=== PATIENT | male | born 1945 | race African-American/Black ===

== ENCOUNTER 2016-04-10 21:28 | Emergency (ER) ==
--- NOTE | 2016-04-10 21:56 | ED EKG INTERP ---
EKG Interpretation - EKG Time of EKG reading by physician:: 21:55 EKG Read and Signed by:: Brian Dial EKG Interpretation (*Must complete 3 of following elements*): Abnormal (Minimal voltage criteria for LVH, may be normal variant per Dr. Dial) Rate: 77 Rhythm: Normal sinus rhythm Attestation - Scribe Verification/Attestation Scribe:: Bryan Ochoa Acting as Scribe for:: Brian Dial Scribe documention review:: This chart was documented by a scribe and accurately reflects the service the provider performed and the decisions made by the provider.
--- NOTE | 2016-04-10 22:23 | PROVIDER DOCUMENTATION ---
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 Pt reports he has been having fever/chills, has been diaphoretic, c/p, elevated b/ p and headaches today and reports his vomit was red, but also reports drinking red colored Koolaid. Pt reports that he felt much better after vomiting. 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 On exam, pt denies any pain and says "I feel great." Onset/Duration: reports: 1-3 hours ago Timing: reports: gone now, resolved prior to arrival Associated Symptoms: reports: chest pain, diaphoresis, fever/chills, headaches, vomiting. denies: constipation, diarrhea, fatigue, loss of appetite, nausea, shortness of breath, pain with inspiration, syncope, weakness, trouble walking <Bryan Ochoa - Last Filed: 04/11/16 02:53> <Brian Dial - Last Filed: 04/11/16 02:58> - General Chief Complaint: General Adult Stated Complaint: "POSS VOMITING BLOOD" Time Seen by Provider: 04/10/16 21:54 Allergies/Adverse Reactions: Patient Allergies Allergy/AdvReac Type Severity Reaction Status Date / Time No Known Allergies Allergy Verified 04/10/16 22:45 Home Medications: Ezetimibe [Zetia] 10 mg PO DAILY 08/14/15 Fenofibric Acid D.r. [Trilipix] 1 cap PO DAILY 08/14/15 Pantoprazole [Protonix] 40 mg PO DAILY 08/14/15 Rosuvastatin Calcium [Crestor] 40 mg PO DAILY 08/14/15 Aspirin [Aspirin EC] 81 mg PO DAILY 04/10/16 Review of Systems - Adult - REVIEW OF SYSTEMS - ADULT Constitutional: reports: chills, fever. denies: fatique, night sweats Eyes: reports: no symptoms reported Ears, Nose, Mouth & Throat: reports: no symptoms reported Cardiovascular: reports: chest pain, other (elevated b/p). denies: heart murmur , irregular heart rate, poor circulation, syncope Respiratory: reports: no symptoms reported Gastrointestinal: reports: vomiting. denies: abdominal pain, constipation, diarrhea, nausea, poor appetite Genitourinary: reports: no symptoms reported Musculoskeletal: reports: no symptoms reported Integumentary: reports: other (diaphoresis). denies: hives, itching, rash, skin sores/ulcer, skin thickening Neurological: reports: no symptoms reported Psychiatric: reports: no symptoms reported Endocrine: reports: no symptoms reported Hematologic/Lymphatic: reports: no symptoms reported Allergic/Immunologic: reports: no symptoms reported All Other Systems: Reviewed and Negative <Bryan Ochoa - Last Filed: 04/11/16 02:53> Past History - Adult - PAST MEDICAL HISTORY-ADULT Review of Records: reports: Nursing Assessment Review, Medications Reviewed Cardiovascular: reports: arrhythmia, HTN, hyperlipidemia Genitourinary: reports: cancer (prostate ) - PRIOR SURGERIES/PROCEDURES Surgical/Procedure History: reports: appendectomy, other (prostate removal ) - PRIOR HOSPITALIZATIONS Prior Hospitalizations: reports: for other non-related - IMMUNIZATION STATUS Childhood Immunizations: See Nurse Assessment Flu Vaccine: See Nurse Assessment <Bryan Ochoa - Last Filed: 04/11/16 02:53> Physical Exam-General - PHYSICAL EXAM-ADULT Initial Vital Signs Reviewed: Yes - CONSTITUTIONAL General Appearance: appears well, alert, no apparent distress - EYES Eyes: PERRL/EOMI, pink conjunctivae, fundi clear, no AV nicking - HEAD, EARS, NOSE, MOUTH & THROAT HENMT: normocephalic/atraumatic, moist mucous membranes, normal ENT inspection - NECK Neck: non-tender, full range of motion, supple - RESPIRATORY Respiratory: chest non-tender, lungs clear, normal breath sounds - CARDIOVASCULAR Cardiovascular: normal peripheral pulses, regular rate, rhythm - GASTROINTESTINAL (ABDOMEN) Abdominal Exam: normal bowel sounds, non tender, soft - LYMPHATIC Lymphatic: no adenopathy - SKIN Integumentary: normal color, normal turgor, warm/dry - NEUROLOGIC Neurologic: grossly normal, no motor/sensory deficits - PSYCHIATRIC Psych/Mental Status: normal mood/affect, normal thought content, normal thought process, oriented x 3 <Bryan Ochoa - Last Filed: 04/11/16 02:53> Progress - PLAN OF CARE/RESULTS Progress/Plan/Lab Results: Vital Signs - 24 hr 04/10/16 21:30 Temperature 97.7 F Pulse Rate 81 Respiratory 16 Rate Blood Pressure 148/117 O2 Sat by Pulse 98 Oximetry Orders Category Date Time Status Cardiac Monitoring DIRECTED Care 04/10/16 22:18 Active Saline Loc DIRECTED Care 04/10/16 22:01 Inactive NPO Diet 04/10/16 22:01 Active acute [FLAT/UPRIGHT ABD/1 VIEW CHEST] [RAD] Stat Exams 04/10/16 22:02 Taken CBC WITH ELECTRONIC DIFF [HEME] Stat Lab 04/10/16 22:40 Completed COMPREHENSIVE METABOLIC PANEL [CHEM] Stat Lab 04/10/16 22:40 Completed LIPASE [CHEM] Stat Lab 04/10/16 22:40 Completed TROPONIN T Stat Lab 04/10/16 22:40 Completed URINALYSIS W/POSS RFLX CULT [URINALYSIS] Stat Lab 04/10/16 23:20 Results URINE MANUAL MICROSCOPIC [URINALYSIS] Stat Lab 04/10/16 23:20 Results CefTRIAXONE 1 GM/NS [Rocephin 1 gm/Ns] 50 ml Med 04/10/16 23:49 Active IV STAT Ciprofloxacin [Cipro] Med 04/10/16 23:43 Discontinued 500 mg PO NOW ONE EKG [EKG] Stat Ther 04/10/16 21:43 Ordered Laboratory Tests 04/10/16 04/10/16 04/10/16 22:40 22:40 22:40 WBC 10.57 RBC 4.76 Hgb 14.6 Hct 43.9 MCV 92.2 MCH 30.7 MCHC 33.3 RDW Std Deviation 13.3 Plt Count 379 MPV 9.3 Immature Gran % (Auto) 0.7 H Neut % (Auto) 74.9 Lymph % (Auto) 12.3 L [place] % (Auto) 9.6 H Eos % (Auto) 2.2 Baso % (Auto) 0.3 Immature Gran # (Auto) 0.07 H Neut # (Auto) 7.92 H Lymph # (Auto) 1.30 [place] # (Auto) 1.02 H Eos # (Auto) 0.23 Baso # (Auto) 0.03 Sodium 141 Potassium 4.2 Chloride 102 Carbon Dioxide 27 Anion Gap 12 BUN 20 Creatinine 2.3 H Estimated GFR/1.73 m2 34 BUN/Creatinine Ratio 9 Glucose 107 H Calculated Osmolality 284 Calcium 9.3 Total Bilirubin 0.26 AST 27 ALT 23 Alkaline Phosphatase 45 Troponin T 0.080 Total Protein 6.8 Albumin 3.7 Globulin 3.1 Albumin/Globulin Ratio 1.2 Lipase 60 Urine Source Urine Color Urine Turbidity Urine pH Ur Specific [place] Urine Protein Ur Glucose (Stick) Ur Ketones (Stick) Urine Blood Urine Nitrite Urine Bilirubin Urobilinogen Dipstick Urine Leukocytes Urine WBC (Auto) Urine RBC (Auto) U Epithel Cells (Auto) Urine Bacteria (Auto) 04/10/16 23:20 WBC RBC Hgb Hct MCV MCH MCHC RDW Std Deviation Plt Count MPV Immature Gran % (Auto) Neut % (Auto) Lymph % (Auto) [place] % (Auto) Eos % (Auto) Baso % (Auto) Immature Gran # (Auto) Neut # (Auto) Lymph # (Auto) [place] # (Auto) Eos # (Auto) Baso # (Auto) Sodium Potassium Chloride Carbon Dioxide Anion Gap BUN Creatinine Estimated GFR/1.73 m2 BUN/Creatinine Ratio Glucose Calculated Osmolality Calcium Total Bilirubin AST ALT Alkaline Phosphatase Troponin T Total Protein Albumin Globulin Albumin/Globulin Ratio Lipase Urine Source CLEAN CATCH Urine Color YELLOW Urine Turbidity TURBID Urine pH 5.5 Ur Specific [place] 1.027 Urine Protein 200 A Ur Glucose (Stick) TRACE Ur Ketones (Stick) TRACE A Urine Blood NEGATIVE Urine Nitrite NEGATIVE Urine Bilirubin SMALL A Urobilinogen Dipstick 3 A Urine Leukocytes TRACE A Urine WBC (Auto) 10-20 A Urine RBC (Auto) <10 U Epithel Cells (Auto) <10 Urine Bacteria (Auto) NEGATIVE - XRAY 1 XRAY: Bilateral XRAY Study: Chest, Abdomen, Pelvis Impression: See EMR Report XRAY Interpretation: NAD per Dr. Dial <Bryan Ochoa - Last Filed: 04/11/16 02:53> Departure - Departure Time of Disposition Order: 23:51 Certified Medical Emergency: Emergent <Bryan Ochoa - Last Filed: 04/11/16 02:53> - Departure Certified Medical Emergency: Emergent <Brian Dial - Last Filed: 04/11/16 02:58> - Departure DIAGNOSIS: Renal insufficiency, Volume depletion UTI (urinary tract infection) Qualifiers: Urinary tract infection type: site unspecified Hematuria presence: without hematuria Qualified Code(s): N39.0 - Urinary tract infection, site not specified Disposition: HOME 01 Condition: Stable Additional Instructions: plenty of fluids, return to ER if chest pain returns, followup with primary care provider and urologist on Wednesday Prescriptions: Ciprofloxacin HCl [Cipro] 500 mg PO BID #14 tablet Referrals: Dereje Vargas Jr, MD [Primary Care Provider] - Sam Gan MD [STAFF PHYSICIAN] - Instructions: Urinary Tract Infection, [id number] Attestation - Scribe Verification/Attestation Scribe:: Bryan Ochoa Acting as Scribe for:: Brian Dial Scribe documention review:: This chart was documented by a scribe and accurately reflects the service the provider performed and the decisions made by the provider. <Bryan Ochoa - Last Filed: 04/11/16 02:53> Physician Attestation
[2016-04-10 22:50] LABS: MANUAL DIFF NEEDED? NO
[2016-04-10 22:51] LABS: BASO% 0.3 % (0.0-0.8); EOS# 0.23 X1000 (0.0-0.7); EOS% 2.2 % (0.0-10.0); HEMATOCRIT 43.9 % (42.0-52.0); HEMOGLOBIN 14.6 g/dL (14.0-18.0); IMM GRAN# 0.07 X1000 (0.0-0.04); IMM GRAN% 0.7 % (0.0-0.5); LYMPH% 12.3 % (20.5-51.1); MCH 30.7 PG (27-31); MCHC 33.3 g/dL (33-37); MCV 92.2 FL (81-99); MONO# 1.02 X1000 (0.11-0.59); MONO% 9.6 % (1.7-9.3); MPV 9.3 FL (7.4-10.4); NEUT% 74.9 % (42.2-75.2); PLT 379 X1000 (130-400); RBC 4.76 XMIL (4.7-6.1)
[2016-04-10 23:07] LABS: ALBUMIN 3.7 g/dL (3.5-5.0); CALCIUM 9.3 mg/dL (8.8-10.2); POTASSIUM 4.2 mmol/L (3.5-5.1); TOTAL BILIRUBIN 0.26 mg/dL (0.20-1.00); TOTAL PROTEIN 6.8 g/dL (6.3-8.3)
[2016-04-10 23:24] LABS: URINE CULTURE NEEDED? NO; URINE SOURCE CLEAN CATCH
[2016-04-10 23:27] LABS: BILIRUBIN URINE SMALL (NEGATIVE); BLOOD URINE NEGATIVE (NEGATIVE); COLOR YELLOW; GLUCOSE URINE TRACE mg/dL (NEGATIVE); LEUKOCYTES URINE TRACE (NEGATIVE); NITRITE URINE NEGATIVE (NEGATIVE); PH URINE 5.5; PROTEIN URINE 200 mg/dL (NEGATIVE); SP GRAVITY URINE 1.027; TURBIDITY URINE TURBID (CLEAR); UROBILINOGEN URINE 3 mg/dL (NORMAL)
[2016-04-10 23:29] LABS: URINE MICRO REVIEW NEEDED? YES
[2016-04-10] MEDS ORDERED: CIPRO PO ONE (23:43)
[2016-04-10 23:45] LABS: UR EPITHELIAL CELLS <10 /HPF (<10); URINE BACTERIA NEGATIVE /HPF; URINE RBC <10 /HPF (<10)
[2016-04-10] MEDS ORDERED: ROCEPHIN 1 GM/NS 50 ML IV STA (23:49)
[2016-04-10] MEDS ORDERED: NS 2,000 ML IV ONE (23:56)
[2016-04-11] MEDS ORDERED: ROCEPHIN 1 GM/NS 50 ML IV STA (00:06)
[2016-04-11 00:49] LABS: URINE CASTS NONE SEEN
[2016-04-11] MEDS ORDERED: PROTONIX IV ONE (01:23)
[2016-04-11] MEDS ORDERED: SODIUM CHLORIDE 0.9% INJ ONE (01:23)
[2016-04-11 02:34] VITALS: BP 114/73
--- NOTE | 2016-04-11 10:49 | Diag Imaging Result Document ---
PROCEDURE NAME: FLAT/UPRIGHT ABD/1 VIEW CHEST - 04/10/2016 PLAIN RADIOGRAPHS OF THE CHEST AND ABDOMEN, 3 VIEWS: COMPARISON: Chest radiograph dated 08/14/2015. FINDINGS: There are unremarkable bowel gas and stool patterns. There is no definite obstructive pattern. There is no evidence of large-volume free abdominal gas. There is no definite organomegaly. There is suggestion of minimal left basilar atelectasis. The lungs are clear otherwise. There is no significant pleural fluid collection identified. Cardiac silhouette is unremarkable. IMPRESSION: 1. No definite acute abdominal pathology by plain radiograph. 2. Suggestion of minimal left basilar atelectasis.
--- NOTE | 2016-04-13 07:45 | EKG Report ---
Test Performed on : 04/10/2016 9:43:03 PM Test Reason : done in ED/Order cancelled in [employer] Blood Pressure : / mmHG Vent. Rate : 077 BPM Atrial Rate : 077 BPM P-R Int : 158 ms QRS Dur : 104 ms QT Int : 402 ms P-R-T Axes : 053 -20 013 degrees QTc Int : 454 ms Normal sinus rhythm. Minimal voltage criteria for LVH, may be normal variant Borderline ECG No previous ECGs available Unconfirmed Result
== END 2016-04-11 03:04 | disposition home or self-care (01) ==
LOC: ED 21:28
DX: N28.9 Disorder of kidney and ureter, unspecified (principal); E86.0 Dehydration; N39.0 Urinary tract infection, site not specified; R07.9 Chest pain, unspecified; R11.10 Vomiting, unspecified; R61 Generalized hyperhidrosis; I10 Essential (primary) hypertension; E78.5 Hyperlipidemia, unspecified; Z79.899 Other long term (current) drug therapy; Z85.46 Personal history of malignant neoplasm of prostate; R94.31 Abnormal electrocardiogram [ECG] [EKG]; Z79.82 Long term (current) use of aspirin; R50.9 Fever, unspecified
CPT/HCPCS: 36415; 74022; 80053; 81001; 83605; 83690; 84484; 85025; 93005; 96365; 96375; C9113; J0696; J7030; S0164

== ENCOUNTER 2019-02-06 21:31 | Observation (INO) ==
[2019-02-06] MEDS ORDERED: ADENOCARD IV ONE (21:59)
[2019-02-06] MEDS ORDERED: NS 1,000 ML IV ONE (21:59)
--- NOTE | 2019-02-06 22:18 | EKG Report ---
Test Performed on : 02/06/2019 9:49:39 PM Test Reason : cp Blood Pressure : / mmHG Vent. Rate : 190 BPM Atrial Rate : 182 BPM P-R Int : 000 ms QRS Dur : 096 ms QT Int : 256 ms P-R-T Axes : 000 -18 -21 degrees QTc Int : 455 ms Supraventricular tachycardia. Nonspecific ST and T wave abnormality Abnormal ECG No previous ECGs available Unconfirmed Result
--- NOTE | 2019-02-06 22:21 | Diag Imaging Result Doc PS360 ---
CHEST-PORTABLE - 02/06/2019 INDICATION: tachycardia COMPARISON: 04/10/2016 FINDINGS: There is some stable linear scarring in the left lung base. Otherwise no infiltrates or edema. Heart size is top normal. No pneumothorax or significant pleural effusion. IMPRESSION: Stable linear scarring in the left lung base. Electronically signed by Jase Land 02/06/2019 10:19 PM
[2019-02-06 23:19] LABS: URINE SOURCE CLEAN CATCH
[2019-02-06 23:32] LABS: BILIRUBIN URINE NEGATIVE (NEGATIVE); BLOOD URINE NEGATIVE (NEGATIVE); COLOR YELLOW; GLUCOSE URINE NEGATIVE (NEGATIVE); KETONE URINE NEGATIVE (NEGATIVE); LEUKOCYTES URINE NEGATIVE (NEGATIVE); NITRITE URINE NEGATIVE (NEGATIVE); PH URINE 5.5; PROTEIN URINE NEGATIVE (NEGATIVE); SP GRAVITY URINE 1.014; TURBIDITY URINE CLEAR (CLEAR); UROBILINOGEN URINE NORMAL (NORMAL)
[2019-02-06 23:33] LABS: UR EPITHELIAL CELLS <10 /HPF (<10); URINE BACTERIA NEGATIVE /HPF; URINE RBC <10 /HPF (<10); URINE WBC <10 /HPF (<10)
[2019-02-06 23:36] LABS: BASO# 0.04 X1000 (0.0-0.2); BASO% 0.3 % (0.0-0.8); EOS# 0.31 X1000 (0.0-0.7); EOS% 2.7 % (0.0-10.0); HEMATOCRIT 48.1 % (42.0-52.0); HEMOGLOBIN 15.3 g/dL (14.0-18.0); IMM GRAN# 0.02 X1000 (0.0-0.04); IMM GRAN% 0.2 % (0.0-0.5); LYMPH# 2.77 X1000 (1.2-3.4); LYMPH% 23.9 % (20.5-51.1); MCH 29.1 PG (27-31); MCHC 31.8 g/dL (33-37); MCV 91.6 FL (81-99); MONO# 1.07 X1000 (0.11-0.59); MONO% 9.2 % (1.7-9.3); MPV 10.5 FL (7.4-10.4); NEUT# 7.36 X1000 (1.4-6.5); NEUT% 63.7 % (42.2-75.2); PLT 308 X1000 (130-400); RBC 5.25 XMIL (4.7-6.1); RDW 13.9 % (11.5-14.5); WBC 11.57 X1000 (4.8-10.8)
[2019-02-06 23:46] LABS: UR AMPHETAMINES QUAL NONE DETECTED (NONE DETECT); UR BARBITUATES QUAL NONE DETECTED (NONE DETECT); UR BENZODIAZEPIN QUAL NONE DETECTED (NONE DETECT); UR CANNABINOIDS QUAL NONE DETECTED (NONE DETECT); UR COCAINE QUAL NONE DETECTED (NONE DETECT); UR METHADONE QUAL NONE DETECTED (NONE DETECT); UR OPIATES QUAL NONE DETECTED (NONE DETECT); UR OXYCODONE QUAL NONE DETECTED (NONE DETECT); UR PCP QUAL NONE DETECTED (NONE DETECT)
[2019-02-07 00:17] LABS: CALCIUM 9.1 mg/dL (8.8-10.2); CREATININE 2.1 mg/dL (0.7-1.2); POTASSIUM 4.4 mmol/L (3.5-5.1)
[2019-02-07] MEDS ORDERED: CRESTOR PO ONE (00:24)
--- NOTE | 2019-02-07 00:37 | PROVIDER DOCUMENTATION ---
This chart was entered by Purnima Covarrubias Scribe, acting as scribe for Finn Hooper MD. HPI-Cardiac General - General Chief Complaint: Palpitations Stated Complaint: CHEST PAIN/LOW BP Time Seen by Provider: 02/06/19 21:56 Source: patient Allergies/Adverse Reactions: Patient Allergies Allergy/AdvReac Type Severity Reaction Status Date / Time No Known Allergies Allergy Verified 02/06/19 23:18 Home Medications: Home Medication List Medication Instructions Recorded Confirmed Last Taken Type Ezetimibe [Zetia] 10 mg PO DAILY 08/14/15 02/06/19 05/13/18 09:15 History Fenofibric Acid D.r. [Trilipix] 1 cap PO DAILY 08/14/15 02/06/19 05/13/18 09:15 History Rosuvastatin Calcium [Crestor] 40 mg PO DAILY 08/14/15 02/06/19 05/13/18 09:15 History FOSINOpril [Monopril] 40 mg PO BID 05/12/18 02/06/19 05/13/18 09:15 History Indapamide 2.5 mg PO DAILY 05/12/18 02/06/19 05/13/18 09:15 History Aspirin [Aspir-Low] 81 mg PO DAILY 02/06/19 02/06/19 Unknown History Metoprolol [Lopressor] 100 mg PO BID 02/06/19 02/06/19 Unknown History Oxybutynin Chloride [Oxybutynin 10 mg PO DAILY 02/06/19 02/06/19 Unknown History Chloride ER] - History of Present Illness-Cardiac Nature of Presenting Problem: pt is a 73 yr old male presenting with 2 hour complaint of palpitations and shortness of breath, pt denies any chest pain, reports pt complained of chest pain and dizziness approx 1 hour prior to onset of palpitations. pt admits hx of arrhythmia. pt denies any chest pain at this time. Severity in ED: moderate Onset/Duration: 1-3 hours ago Timing: still present Context/Activities at Onset: reports: rest Modifying Factors: improves with: nothing Palpitation Quality: fast/pounding heart beat History of arrythmia: reports: other (hx of arrhythmia, pt unsure name of it) Nitro Today/Relief: reports: no nitro taken today Aspirin Treatment Today: reports: no aspirin today Associated Symptoms: denies: diaphoresis, fever/chills, shortness of breath Similar Symptoms Previously?: Yes Recently Seen Here or By Another Healthcare Provider: No Review of Systems - Adult - REVIEW OF SYSTEMS - ADULT Constitutional: denies: fever, fatique Eyes: denies: blurred vision, double vision Ears, Nose, Mouth & Throat: reports: no symptoms reported Cardiovascular: reports: palpitations, syncope. denies: chest pain Respiratory: denies: cough, dyspnea on exertion, shortness of breath Gastrointestinal: denies: nausea, vomiting Genitourinary: reports: no symptoms reported Musculoskeletal: reports: no symptoms reported Integumentary: reports: no symptoms reported Neurological: denies: dizziness/vertigo, headache/migraines, syncope Psychiatric: reports: no symptoms reported Endocrine: reports: no symptoms reported Hematologic/Lymphatic: reports: no symptoms reported Allergic/Immunologic: reports: no symptoms reported All Other Systems: Reviewed and Negative Past History - Adult - PAST MEDICAL HISTORY-ADULT Review of Records: reports: Old Records Reviewed, Nursing Assessment Review, Medications Reviewed, Social history reviewed & non-contributory. Major Childhood Illnesses: reports: denies history Cardiovascular: reports: arrhythmia, HTN, hyperlipidemia Respiratory: reports: denies history Gastrointestinal: reports: denies history Obstetrical/Gynecological: reports: denies history Genitourinary: reports: cancer (prostate ) Musculoskeletal: reports: denies history Neurological: reports: denies history Endocrine/Immune: reports: denies history Other Conditions: reports: denies history - PRIOR SURGERIES/PROCEDURES Surgical/Procedure History: reports: appendectomy, other (prostate removal ) - PRIOR HOSPITALIZATIONS Prior Hospitalizations: reports: for other non-related - IMMUNIZATION STATUS Childhood Immunizations: See Nurse Assessment Flu Vaccine: See Nurse Assessment - FAMILY HISTORY Family History: reviewed, not pertinent - SOCIAL HISTORY Smoking: denies Substance Use: alcohol Alcohol Use Frequency: occasionally Living Situation: family Physical Exam-General - PHYSICAL EXAM-ADULT Initial Vital Signs Reviewed: Yes - CONSTITUTIONAL General Appearance: appears well, alert, no apparent distress - EYES Eyes: PERRL/EOMI - HEAD, EARS, NOSE, MOUTH & THROAT HENMT: normocephalic/atraumatic, moist mucous membranes, normal ENT inspection - NECK Neck: non-tender, full range of motion, supple, normal inspection - RESPIRATORY Respiratory: lungs clear, normal breath sounds, no respiratory distress, no accessory muscle use - CARDIOVASCULAR Cardiovascular: normal peripheral pulses, tachycardia - GASTROINTESTINAL (ABDOMEN) Abdominal Exam: normal bowel sounds, non tender, soft - LYMPHATIC Lymphatic: no adenopathy - MUSCULOSKELETAL Back Exam: normal inspection, no CVA tenderness, no vertebral tenderness Extremity: normal range of motion, non-tender, normal gait, normal inspection - SKIN Integumentary: normal color, normal turgor, warm/dry - NEUROLOGIC Neurologic: grossly normal, no motor/sensory deficits - PSYCHIATRIC Psych/Mental Status: normal mood/affect - HEART Score HEART Score: History: Slightly Suspicious HEART Score: ECG: Non-Specific Repolarization Disturbance/LBBB/PM HEART Score: Age: > or = 65 Years HEART Score: Risk Factors for Atherosclerotic Disease: No Risk Factors Known HEART Score: Troponin: < or = Normal Limit Total HEART Score:: 3 Progress - PLAN OF CARE/RESULTS Progress/Plan/Lab Results: Vital Signs - 8 hr 02/06/19 21:54 02/06/19 21:55 02/06/19 22:12 Temperature 97.5 F L Pulse Rate 190 H 189 H 87 Respiratory Rate 33 H 19 18 Blood Pressure 110/58 110/58 103/66 O2 Sat by Pulse Oximetry 99 99 02/06/19 22:29 02/06/19 22:59 Temperature Pulse Rate 84 73 Respiratory Rate 15 24 Blood Pressure 101/70 101/73 O2 Sat by Pulse Oximetry 96 95 Laboratory Results - last 24 hr 02/06/19 02/06/19 02/06/19 23:00 23:00 23:00 WBC 11.57 H RBC 5.25 Hgb 15.3 Hct 48.1 MCV 91.6 MCH 29.1 MCHC 31.8 L RDW Std Deviation 13.9 Plt Count 308 MPV 10.5 H Immature Gran % (Auto) 0.2 Neut % (Auto) 63.7 Lymph % (Auto) 23.9 [place] % (Auto) 9.2 Eos % (Auto) 2.7 Baso % (Auto) 0.3 Immature Gran # (Auto) 0.02 Neut # (Auto) 7.36 H Lymph # (Auto) 2.77 [place] # (Auto) 1.07 H Eos # (Auto) 0.31 Baso # (Auto) 0.04 D-Dimer, Quantitative 0.45 Sodium 141 Potassium 4.4 Chloride 103 Carbon Dioxide 21 L Anion Gap 17 BUN 19 Creatinine 2.1 H Estimated GFR/1.73 m2 37 BUN/Creatinine Ratio 9 Glucose 109 H Calculated Osmolality 284 Calcium 9.1 Magnesium Troponin T Urine Source Urine Color Urine Turbidity Urine pH Ur Specific Ray Urine Protein Ur Glucose (Stick) Ur Ketones (Stick) Urine Blood Urine Nitrite Urine Bilirubin Urobilinogen Dipstick Urine Leukocytes Urine WBC (Auto) Urine RBC (Auto) U Epithel Cells (Auto) Urine Bacteria (Auto) Urine Opiates Screen Ur Oxycodone Screen Ur Methadone, Qual Ur Barbiturates Screen Ur Phencyclidine Scrn Ur Amphetamines Screen U Benzodiazepines Scrn Urine Cocaine Screen U Cannabinoids Screen 02/06/19 02/06/19 02/06/19 23:00 23:00 23:11 WBC RBC Hgb Hct MCV MCH MCHC RDW Std Deviation Plt Count MPV Immature Gran % (Auto) Neut % (Auto) Lymph % (Auto) [place] % (Auto) Eos % (Auto) Baso % (Auto) Immature Gran # (Auto) Neut # (Auto) Lymph # (Auto) [place] # (Auto) Eos # (Auto) Baso # (Auto) D-Dimer, Quantitative Sodium Potassium Chloride Carbon Dioxide Anion Gap BUN Creatinine Estimated GFR/1.73 m2 BUN/Creatinine Ratio Glucose Calculated Osmolality Calcium Magnesium 2.4 Troponin T < 0.010 Urine Source CLEAN CATCH Urine Color YELLOW Urine Turbidity CLEAR Urine pH 5.5 Ur Specific Ray 1.014 Urine Protein NEGATIVE Ur Glucose (Stick) NEGATIVE Ur Ketones (Stick) NEGATIVE Urine Blood NEGATIVE Urine Nitrite NEGATIVE Urine Bilirubin NEGATIVE Urobilinogen Dipstick NORMAL Urine Leukocytes NEGATIVE Urine WBC (Auto) <10 Urine RBC (Auto) <10 U Epithel Cells (Auto) <10 Urine Bacteria (Auto) NEGATIVE Urine Opiates Screen Ur Oxycodone Screen Ur Methadone, Qual Ur Barbiturates Screen Ur Phencyclidine Scrn Ur Amphetamines Screen U Benzodiazepines Scrn Urine Cocaine Screen U Cannabinoids Screen 02/06/19 23:11 WBC RBC Hgb Hct MCV MCH MCHC RDW Std Deviation Plt Count MPV Immature Gran % (Auto) Neut % (Auto) Lymph % (Auto) [place] % (Auto) Eos % (Auto) Baso % (Auto) Immature Gran # (Auto) Neut # (Auto) Lymph # (Auto) [place] # (Auto) Eos # (Auto) Baso # (Auto) D-Dimer, Quantitative Sodium Potassium Chloride Carbon Dioxide Anion Gap BUN Creatinine Estimated GFR/1.73 m2 BUN/Creatinine Ratio Glucose Calculated Osmolality Calcium Magnesium Troponin T Urine Source Urine Color Urine Turbidity Urine pH Ur Specific Ray Urine Protein Ur Glucose (Stick) Ur Ketones (Stick) Urine Blood Urine Nitrite Urine Bilirubin Urobilinogen Dipstick Urine Leukocytes Urine WBC (Auto) Urine RBC (Auto) U Epithel Cells (Auto) Urine Bacteria (Auto) Urine Opiates Screen NONE DETECTED Ur Oxycodone Screen NONE DETECTED Ur Methadone, Qual NONE DETECTED Ur Barbiturates Screen NONE DETECTED Ur Phencyclidine Scrn NONE DETECTED Ur Amphetamines Screen NONE DETECTED U Benzodiazepines Scrn NONE DETECTED Urine Cocaine Screen NONE DETECTED U Cannabinoids Screen NONE DETECTED Orders Category Date Time Status Cardiac Monitoring DIRECTED Care 02/06/19 21:58 Active Saline Loc NOW Care 02/06/19 21:58 Active CHEST-PORTABLE [RAD] Stat Exams 02/06/19 21:58 Completed BASIC METABOLIC PANEL [CHEM] Stat Lab 02/06/19 23:00 Completed CBC WITH ELECTRONIC DIFF [HEME] Stat Lab 02/06/19 23:00 Completed D-DIMER [COAG] Stat Lab 02/06/19 23:00 Completed FREE T4 Stat Lab 02/06/19 23:00 Received MAGNESIUM [CHEM] Stat Lab 02/06/19 23:00 Completed TROPONIN T Stat Lab 02/06/19 23:00 Completed URINALYSIS W/POSS RFLX CULT [URINALYSIS] Stat Lab 02/06/19 23:11 Completed URINE DRUG SCREEN Stat Lab 02/06/19 23:11 Completed 0.9% Sodium Chloride Inj [Ns] 1,000 ml Med 02/06/19 21:59 Discontinued IV 999 mls/hr Adenosine [Adenocard] Med 02/06/19 21:59 Discontinued 6 mg IV NOW ONE ROSUVAstatin [Crestor] Med 02/07/19 00:24 Discontinued 40 mg PO NOW ONE EKG [EKG] Stat Ther 02/06/19 21:45 Draft EKG [EKG] Stat Ther 02/06/19 21:58 Ordered Result Diagrams: 02/06/19 23:00 02/06/19 23:00 - REASSESSMENT Reassessment #1 Time Reassessed: 22:08 Status: improving (SVT resolved with 6mg Adenosine IVP) - EKG 1 Time of EKG reading by physician:: 21:49 EKG Read and Signed by:: Finn Hooper EKG Interpretation (*Must complete 3 of following elements*): Abnormal Rate: 190 Rhythm: SVT ST Wave: non-specific ST changes 2 Time of EKG reading by physician:: 22:11 EKG Read and Signed by:: Finn Hooper EKG Interpretation (*Must complete 3 of following elements*): Abnormal Rate: 90 Rhythm: sinus with occ ventricular paced complexes and premature supraventricular c [place]: normal [place] Interval: prolonged - XRAY 1 XRAY Study: Chest Impression: Abnormal (Signed CHEST-PORTABLE - 02/06/2019 INDICATION: tachycardia COMPARISON: 04/10/2016 FINDINGS: There is some stable linear scarring in the left lung base. Otherwise no infiltrates or edema. Heart size is top normal. No pneumothorax or significant pleural effusion. IMPRESSION: Stable linear scarring in the left lung base. Electronically signed by Jase Land 02/06/2019 10:19 PM 02/06/192218 Interpreting Physician: Jase Land MD Dictated Date/Time: 02/06/192217 cc: Finn Hooper MD; Dereje Vargas Jr, MD) - CONSULTS/PCP/HOSPITALIST Notification #1 *Consult/PCP/Hospitalist*: DR GRISSOM Time Discussed: 00:32 Consult Disposition: Admit Procedures - ADDITIONAL PROCEDURES Additional Procedure: OTHER (CHEMICAL CARDIOVERSION) Consent Form Signed if Applicable?: No Time-Out Verification Completed?: Yes Description of Procedure (Other): 73 YO MALE WITH SUSTAINED NARROW COMPLEX TACHYCARDIA OF 180-191/MIN. GOOD LEFT ANTECUBITAL IV ESTABLISHED. RAPID IV INFUSION OF 6MG ADENOSINE W/TH 10ML NS FLUS H ADMINISTERED RESULTING IN CONVERSION TO NSR AT 85/MIN AT 2208hr-rws Departure - Departure Date of Disposition Decision: 02/07/19 Time of Disposition Decision: 00:33 DIAGNOSIS: PSVT (paroxysmal supraventricular tachycardia) Disposition: ADMITTED INPATIENT 09 Certified Medical Emergency: Emergent Condition: Stable Referrals and Follow-Ups: Dereje Vargas Jr, MD [Primary Care Provider] - - Critical Care Note This patient required my direct & personal management of CC.: No Attestation - Physician/ BETTYE Attestation The physician spent face to face time with patient:: Yes Advanced Practice Provider documentation review:: Supervising physician onsite and consulted in the evaluation and care of this patient. The physician did have a face to face encounter with the patient. This chart was documented by the indicated scribe, (Purnima Covarrubias Scribe) and accurately reflects the services I performed and decisions made by me, Finn Hooper MD, as attested by the provider's signature.
--- NOTE | 2019-02-07 04:57 | HISTORY AND PHYSICAL ---
PRIMARY CARE PHYSICIAN: Dr. Vargas. CHIEF COMPLAINT: Chest pain and palpitations. HISTORY OF PRESENT ILLNESS: A 73-year-old male with a history of hypertension, dyslipidemia, cardiac arrhythmia and chronic kidney disease who had presented to the emergency department with 1- day history of having some chest discomfort which she described as pressure- like, and also some palpitation symptoms. The patient was evaluated in the emergency department. He was found to be in SVT. He was given adenosine, and he converted back to normal sinus rhythm. However, he states that he still was having some chest pressure. Due to his presenting symptoms, it was thought that he will need admission for further management. At the time of my examination, patient denied any headache, fever, chills, nausea, vomiting, diarrhea, hemoptysis, melena, or any weight changes but complained of chest discomfort. PAST MEDICAL HISTORY: Includes hypertension, dyslipidemia, cardiac arrhythmia, and chronic kidney disease. PAST SURGICAL HISTORY: Appendectomy and radical prostatectomy. ALLERGIES: No known drug allergies. CURRENT MEDICATIONS: 1. Aspirin 81 mg p.o. daily. 2. Zetia 10 mg p.o. daily. 3. Trilipix 135 mg p.o. daily. 4. Monopril 40 mg p.o. b.i.d. 5. Indapamide 2.5 mg p.o. daily. 6. Metoprolol 100 mg p.o. b.i.d. 7. Oxybutynin 10 mg p.o. daily. SOCIAL HISTORY: No history of smoking, alcohol or illicit drug use. FAMILY HISTORY: No history of coronary disease. REVIEW OF SYSTEMS: Fourteen point review of system as listed in HPI. Other systems negative. PHYSICAL EXAMINATION: GENERAL: Cooperative, friendly male resting more comfortably now. VITAL SIGNS: Temperature 97.5 degrees, pulse 89, respirations 19 and blood pressure 110/58. HEENT: Atraumatic, normocephalic. Extraocular movements intact. PERRLA. NECK: No masses. CHEST: Clear to auscultation. CARDIOVASCULAR: Regular rate and rhythm. ABDOMEN: Soft. Positive bowel sounds. EXTREMITIES: No edema. NEUROLOGIC: He is awake, alert, and oriented x3. : No bladder distention. SKIN: Warm. LABORATORIES AND STUDIES: WBCs 11.57, hemoglobin 15.3, hematocrit 48.1 and platelets 308,000. Sodium 141, potassium 4.4, chloride 103, CO2 21, BUN 19, creatinine is 2.1, and glucose is 109. Chest x-ray stable linear scarring on the left lung base. ASSESSMENT: A 73-year-old male with a history of hypertension, hyperlipidemia, cardiac arrhythmias, and chronic kidney disease who had presented to our emergency department with 1-day history of having chest discomfort and palpitations like symptoms. He was evaluated in the emergency department. He was found to be in SVT. He was given adenosine and converted to normal sinus rhythm however, he still complained of some chest discomfort. Subsequently, he will need admission for further management assessment. 1. SVT. 2. Chest pain. 3. Hypertension. 4. Hyperlipidemia. PLAN: 1. We will admit patient to medical floor with telemetry. 2. Continue to monitor patient on telemetry. 3. Continue cardiac workup. Check EKG and serial cardiac enzymes. Have patient continue on aspirin. We will use sublingual nitroglycerin and morphine p.r.n. chest pain. 4. We will consult Cardiology. 5. Monitor blood pressure. Resume antihypertensive agent. 6. We will restart other home medications. 7. Place patient on DVT prophylaxis with Lovenox. 8. We will continue to follow and reassess. Make further recommendations based on his clinical course. cc: MD Dereje Donohue Jr, MD MTDD
[2019-02-07] MEDS ORDERED: TYLENOL PO PRN (06:28)
[2019-02-07] MEDS ORDERED: ZOFRAN IV PRN (06:28)
[2019-02-07] MEDS: PRILOSEC PO SCH (08:01)
[2019-02-07] MEDS: LOVENOX SUBQ SCH (08:02)
[2019-02-07] MEDS ORDERED: ASPIRIN PO SCH (09:00)
--- NOTE | 2019-02-07 09:43 | PROGRESS NOTE ---
DATE: 02/07/2019 SUBJECTIVE: The patient says he feels fine right now. He was admitted earlier this morning with SVT, had a heart rate of 190 beats per minute. He says it has been probably close to 5 years since he has had his last stress test. He did have, I believe, a little coronary artery disease in the past. He has had a history of prostate cancer. Looking back through his old records, however, I do find a stress test on 08/15/2015, so just 3 years ago, and it was essentially normal except for a small defect of moderate severity which is fixed in the left ventricular apex. Thought it might be just artifact; however, scarring was another possibility. Seems to be doing much better right now. He is in a sinus bradycardia with a pulse of 58.HEENT: Normocephalic. EOMs intact. PERRLA. Throat clear. Lungs: Clear to auscultation and percussion without rhonchi, rales, or wheezes. Heart: Regular rate and rhythm without murmurs, gallops, friction rubs, in a sinus bradycardia. Abdomen: Soft. Active bowel sounds. No organomegaly or tenderness. Neurologic: Intact grossly. LABORATORY DATA: Cardiac enzymes so far negative. I have consulted Cardiology. The patient may need another stress test. I thought that we had a heart catheterization on him at one time. We will have to find out. I do not see a report in the chart. I think this was a few years ago. Thyroid free T4 was normal. PLAN: Continue support. Cardiology consultation. cc: Dereje Vargas Jr, MD
--- NOTE | 2019-02-07 10:32 | EKG Report ---
Test Performed on : 02/07/2019 10:27:47 AM Test Reason : SVT Blood Pressure : / mmHG Vent. Rate : 054 BPM Atrial Rate : 054 BPM P-R Int : 176 ms QRS Dur : 104 ms QT Int : 484 ms P-R-T Axes : 048 -22 019 degrees QTc Int : 458 ms Sinus bradycardia. Nonspecific T wave abnormality Abnormal ECG When compared with ECG of 06-FEB-2019 21:49, (Unconfirmed) Vent. rate has decreased BY [address] no longer depressed in Lateral leads T wave inversion now evident in Anterior leads Unconfirmed Result
--- NOTE | 2019-02-07 11:00 | CARDIOLOGY CONSULTATION ---
DATE: 02/07/2019 CHIEF COMPLAINT: Palpitations and chest pain. HISTORY OF PRESENT ILLNESS: Mr. Luevano is a 73-year-old black male who presented for evaluation of palpitations. It began yesterday afternoon when he was seated. He had missed doses of his metoprolol. He had no exertional component. He was brought in, seen in the ER, and administered adenosine with quick conversion to sinus rhythm. He had no other complaints. He was resumed on his metoprolol. Presently, we are pending his echocardiogram. This is his 3rd episode. We have talked with him about ablation before which he has turned down. PAST MEDICAL HISTORY: 1. Significant for coronary disease identified by left heart catheterization. This demonstrated mild luminal irregularities in the LAD. There is an ostial 40% lesion and a diagonal. Ramus was normal. Circumflex had a 20% lesion with a 30 to 40 percent lesion in the proximal RCA. This was in 2006. His last stress test was in 2015 showing a small fixed defect at the LV apex likely representing artifact. His ejection fractions at that time period were in the 60 to 65% range. 2. Hypertension. 3. Hyperlipidemia. 4. History of prostate cancer. 5. Reflux disease. SOCIAL HISTORY: No tobacco. He is . Family is present in the room. He is a Y[employer]. FAMILY HISTORY: Significant for hypertension. REVIEW OF SYSTEMS: A 10 system review of systems is negative except for those things mentioned in HPI. PHYSICAL EXAMINATION: Vital Signs: He is afebrile. His heart rates are identified in the 50s to 60s. On presentation, his heart rate was 190. His blood pressure is 118/68.General: No acute distress. HEENT: Oropharynx is moist. Normal dentition. Eye examination is pink conjunctivae. White sclerae. Neck: Examination shows no obvious thyromegaly or thyroid tenderness. Cardiovascular: He sounds to be in a regular rate and rhythm. He has no obvious murmurs. He has no S3. He has no S4. He has no lower extremity edema. Chest: Clear bilaterally. He has no increased work of breathing. Abdomen: Soft, nontender, nondistended. He has no obvious organomegaly. Skin: Warm and dry throughout without any rashes. Neurological: He is moving all extremities well. He has no lateralizing deficits. PERTINENT DATA: His initial EKG at 21:49 on the shows a narrow complex SVT at 190 beats per minute. Subsequent EKG occurring at 22:11 shows sinus rhythm. A PVC is identified, and otherwise unremarkable. His final EKG this morning at 10:27 shows sinus bradycardia at 54 beats per minute. Otherwise unremarkable. His lab data demonstrates a white count of 11.6, hematocrit 48, and platelet count of 308,000. Sodium 141, potassium 4.4, BUN 19, and creatinine is 2.1. Cardiac enzymes are negative at this point. His urinalysis was unremarkable. UDS unremarkable. He had a chest x-ray performed demonstrating stable linear scarring in the left lung base. ASSESSMENT: Mr. 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 He has had episodes of this before. PLAN: At this point, the likely etiology is noncompliance with medications. I spoke with him about vagal maneuvers. He has been referred over to [facility] in the past for consideration for radiofrequency ablation, and has actually turned that down. He has reconsidered, and would like to be report set up with another appointment. From my standpoint, he needs an echocardiogram and then she could likely be discharged with continuation of his metoprolol. His free T4 was normal. cc: MD Dereje Lerma Jr, MD
[2019-02-07] MEDS: LOPRESSOR PO SCH ×2 (12:15→21:23)
[2019-02-07] MEDS ORDERED: LOPRESSOR PO ONE (12:16)
[2019-02-07] MEDS: CRESTOR PO SCH (12:25)
[2019-02-07] MEDS: TRILIPIX PO SCH (12:25)
[2019-02-07] MEDS: ASPIRIN EC PO SCH (12:25)
[2019-02-07] MEDS: DITROPAN PO SCH (12:25)
[2019-02-07] MEDS: ZETIA PO SCH (12:25)
[2019-02-07] MEDS: MONOPRIL PO SCH ×2 (12:28→21:23)
[2019-02-08] MEDS: PRILOSEC PO SCH (06:15)
[2019-02-08] MEDS: LOVENOX SUBQ SCH (06:15)
[2019-02-08 07:41] VITALS: BP 141/90
[2019-02-08 08:00] LABS: BASO# 0.02 X1000 (0.0-0.2); BASO% 0.2 % (0.0-0.8); EOS# 0.26 X1000 (0.0-0.7); EOS% 2.9 % (0.0-10.0); HEMATOCRIT 42.7 % (42.0-52.0); HEMOGLOBIN 13.9 g/dL (14.0-18.0); LYMPH% 16.6 % (20.5-51.1); MCH 29.5 PG (27-31); MCHC 32.6 g/dL (33-37); MCV 90.7 FL (81-99); MONO# 0.77 X1000 (0.11-0.59); MONO% 8.5 % (1.7-9.3); NEUT# 6.49 X1000 (1.4-6.5); NEUT% 71.8 % (42.2-75.2); PLT 274 X1000 (130-400); RBC 4.71 XMIL (4.7-6.1); RDW 13.5 % (11.5-14.5); WBC 9.04 X1000 (4.8-10.8)
[2019-02-08 08:18] LABS: CHOLESTEROL 109 mg/dL (0-200); HDL 38 mg/dL (35-55); LDL 56 mg/dL; TRIGLYCERIDES 77 mg/dL (39-160); VLDL 15 mg/dL
--- NOTE | 2019-02-08 08:52 | ECHO REPORT ---
ORDER DATE: 02/07/2019 MEASUREMENTS: Septal thickness 1.0, left ventricular internal diameter in diastole 5.1, posterior wall thickness 1.0, left atrium 2.9, aortic root 3.9. SUMMARY: 1. Fair quality study. 2. Aortic valve is trileaflet and opens normally on 2-dimensional images. The peak gradient across the aortic valve is less than 10 mmHg. There is mild aortic regurgitation. Mitral, tricuspid, and pulmonic valves are without evidence of structural abnormality with mild mitral regurgitation, mild tricuspid regurgitation, and trace pulmonic insufficiency. The estimated systolic PA pressure by Doppler is 30 mmHg. The aortic root is borderline enlarged. 3. Normal left ventricular dimensions suggested. Estimated left ventricular ejection fraction appears to be approximately 50% to 55%. No regional wall motion abnormalities evident. Left atrium, right atrium, and right ventricle are normal in size with grossly preserved right ventricular systolic function. 4. No pericardial effusion. 5. Inferior vena cava not well demonstrated. CONCLUSIONS: 1. Mild aortic regurgitation. 2. Mild mitral regurgitation. 3. Mild tricuspid regurgitation. 4. Estimated left ventricular ejection fraction 50% to 55%. 5. Borderline aortic root enlargement. cc: MD Ana Paula Croft PA Roger H. Moss Jr, MD
[2019-02-08] MEDS: ZETIA PO SCH (08:53)
[2019-02-08] MEDS: ASPIRIN EC PO SCH (08:54)
[2019-02-08] MEDS: DITROPAN PO SCH (08:54)
[2019-02-08] MEDS: MONOPRIL PO SCH (08:54)
[2019-02-08] MEDS: TRILIPIX PO SCH (08:54)
[2019-02-08] MEDS: CRESTOR PO SCH (08:54)
[2019-02-08] MEDS: LOPRESSOR PO SCH (08:55)
--- NOTE | 2019-02-09 07:46 | DISCHARGE SUMMARY ---
ADMISSION DATE: 02/07/2019 DISCHARGE DATE: 02/08/2019 FINAL DIAGNOSES: 1. Supraventricular tachycardia with a heart rate of 190 beats per minute. 2. Secondary diagnoses of known minimal coronary artery disease. 3. Hypertension. 4. History of arrhythmias. 5. Hyperlipidemia. 6. The patient has also had prostate cancer in the past. HISTORY OF PRESENT ILLNESS: The patient comes in with a heart rate of 190 beats per minute. He was found to be in SVT. He was given adenosine in the emergency room and converted back to normal sinus rhythm. We will place him in the hospital to watch for any more arrhythmias and to rule out NC. Cardiac enzymes were normal. Cardiology consult was done with Dr. Dozier. Dr. Dozier ordered an echocardiogram, the results are not back yet. Dr. Dozier is going to set the patient up with another dielectric tester for evaluation of dysrhythmias. The patient had been missing some of his metoprolol. Apparently, in the past, he had to have cardioversion apparently from atrial fibrillation. This time it was just SVT. It was explained to him that he needs to take his metoprolol. The patient also with secondary diagnosis of chronic kidney disease with creatinine of 2.1. PHYSICAL EXAMINATION: General: The patient is well developed, well nourished, black male in no apparent distress. HEENT: Normocephalic. EOMs intact. PERRLA. Throat clear. Lungs: Clear to auscultation and percussion without rhonchi, rales, or wheezes. Heart: Regular rate and rhythm without murmurs, gallops, friction rubs. Abdomen: Soft. Active bowel sounds. No organomegaly or tenderness. Neurologic: Exam intact grossly. Vital Signs: Blood pressure 141/90, pulse is 60 respirations 16, and temperature 98.3 degrees Fahrenheit. DISCHARGE INSTRUCTIONS: We will discharge and see in followup in the next week in my office. He will also follow up with Dr. Dozier and is to have an appointment set up with a specialist about the possibility of doing a radiofrequency ablation. He is to continue current medications, and be sure that he takes his medications at home. cc: Dereje Vargas Jr, MD
--- NOTE | 2019-02-10 13:10 | EKG Report ---
Test Performed on : 02/06/2019 10:11:27 PM Test Reason : SVT Blood Pressure : / mmHG Vent. Rate : 090 BPM Atrial Rate : 090 BPM P-R Int : 160 ms QRS Dur : 094 ms QT Int : 398 ms P-R-T Axes : 049 -27 027 degrees QTc Int : 486 ms Sinus rhythm. with occasional ventricular-paced complexes and premature supraventricular complexes. Prolonged QT Abnormal ECG When compared with ECG of 06-FEB-2019 21:49, (Unconfirmed) Electronic ventricular pacemaker has replaced Sinus rhythm. Vent. rate has decreased BY 100 BPM Unconfirmed Result
== END 2019-02-08 11:17 | disposition home or self-care (01) ==
LOC: ED 21:31 → 3N 02-07 04:06 → INTOOBSV 02-07 04:06 → SUATTDRO 02-07 04:06
PROVIDERS: ADMIT Emergency Medicine; ATTEND Emergency Medicine